=== PATIENT | male | born 1980 | race Caucasian/White ===

== ENCOUNTER 2016-09-12 14:21 | Emergency (ER) | payer MEDICAID ==
[~2016-09-12 14:21] MED LIST: BACTRIM DS 8001 TA1 PO; CEPHALEXIN500 M1 PO; NAPROSYN500 MG PO
[2016-09-12] MEDS ORDERED: NAPROSYN500 MG PO (14:32)
[2016-09-12] MEDS ORDERED: HYDROCODONE BIT1 T11 PO (15:49)
== END 2016-09-12 15:43 | disposition home or self-care (01) ==
LOC: ED 14:21
DX: S82.832A Other fracture of upper and lower end of left fibula, initial encounter for closed fracture (principal); R03.0 Elevated blood-pressure reading, without diagnosis of hypertension; F17.200 Nicotine dependence, unspecified, uncomplicated; W03.XXXA Other fall on same level due to collision with another person, initial encounter; Y93.89 Activity, other specified; Y92.9 Unspecified place or not applicable; Y99.9 Unspecified external cause status

== ENCOUNTER 2023-01-28 22:02 | Emergency (ER) | payer SELFPAY ==
[~2023-01-28] VITALS: Ht 182.8 cm; Wt 104.3 kg
[~2023-01-28 22:02] MED LIST changes: +HYDROCODONE BIT1 T11 PO; +Motrin,Rufen800 MG PO
[2023-01-28] MEDS ORDERED: SEPTDS PO (23:20)
== END 2023-01-28 23:39 | disposition home or self-care (01) ==
LOC: ED 22:02
DX: L73.9 Follicular disorder, unspecified (principal); Z98.890 Other specified postprocedural states

== ENCOUNTER 2023-05-14 09:15 | Emergency (ER) | payer SELFPAY ==
[~2023-05-14] VITALS: Ht 182.8 cm; Wt 102.1 kg
[~2023-05-14 09:15] MED LIST changes: +SEPTDS PO
[2023-05-14] MEDS ORDERED: CLINDAMYCIN HC300 MG PO (09:40)
== END 2023-05-14 10:06 | disposition home or self-care (01) ==
LOC: ED 09:15
DX: L03.211 Cellulitis of face (principal); Z98.890 Other specified postprocedural states

== ENCOUNTER 2024-03-13 08:16 | Emergency (ER) | payer SELFPAY ==
[~2024-03-13] VITALS: Ht 182.8 cm; Wt 99.8 kg
[~2024-03-13 08:16] MED LIST changes: +CLINDAMYCIN HC300 MG PO
[2024-03-13] MEDS ORDERED: AMOX-CLAV 875-1 EACH PO (09:05)
[2024-03-13] MEDS ORDERED: Amoxicillin/Clavulanate Pota 875 MG TAB PO ONE (09:05)
[2024-03-13] MEDS ORDERED: Motrin,Rufen800 MG PO (09:05)
[2024-03-13] MEDS ORDERED: Acetaminophen/Hydrocodone 5 MG/325 MG TABLET PO ONE (09:05)
== END 2024-03-13 09:11 | disposition home or self-care (01) ==
LOC: ED 08:16
DX: K08.89 Other specified disorders of teeth and supporting structures (principal); R22.0 Localized swelling, mass and lump, head; Z98.890 Other specified postprocedural states